=== PATIENT | female | born 1940 | race Caucasian/White ===

== ENCOUNTER 2024-07-24 08:43 | Inpatient (IN) | payer MEDICARE, MEDICAID, SELFPAY ==
[2024-07-24] VITALS (13 sets, daily range): BP systolic 112–194; BP diastolic 67–96; PULSE 57–82; RESP 16–29; TEMP 36.3–37.4; O2SAT 94–100; BMI 38.2
--- NOTE | 2024-07-24 09:10 | PD.EDWEAK ---
ED Weakness RME/HPI General Chief complaint: Weakness Stated complaint: WEAKNESS/ SHAKING Time Seen by Provider: 07/24/24 08:59 Arrival date/time: 07/24/24 08:43 RME / HPI RME / HPI Narrative: This section includes all my notes and documentations, including HPI, PE, and ED course.? Omid Torres MD HPI: 84 year old female with a history of CAD s/p PCI, hypertension, hypothyroidism, and hyperlipidemia presents to the ED BIBA from home for evaluation of right ankle swelling. The swelling began yesterday and is associated with redness and increased warmth over the affected area. She also reports chills, generalized weakness, and an intermittent cough for the past 5 days. The patient notes a decrease in her usual activity level over the past 5 days due to the weakness, and although she lives independently and is able to perform all ADLs, she has been walking less recently. She denies any recent trauma to the ankle or other significant symptoms. No other complaints. ROS: All negative except as documented in HPI. Physical Exam: General:? Alert and oriented.? Appearance of malaise noted. Mild respiratory distress noted. Eyes:? Conjunctivae and lids clear.? ENT:? No nasal congestion.? Neck:? Supple.? Heart:? RRR.? Lungs: Mild respiratory distress.? Moderately decreased air movement with Rales. Abdomen:? Soft and nontender.?? Legs:? No clubbing, cyanosis, edema.? Skin:?Distal 1/3 of the right lower leg remarkable for erythema and edema and calor and soft tissue tenderness. Neuro:? Alert and oriented X 3.??Cranial nerves II through XII normal. No peripheral motor deficits. I reviewed all diagnostic test results. My interpretation of the EKG is?sinus rhythm with nonspecific ST?T changes. My interpretation of the chest x-ray is infiltrates. My interpretation of the right ankle x-rays is no acute fracture. My review of the chest CT report is?bilateral pneumonia. My review of the right lower extremity Doppler is no DVT. Blood tests and urine tests?remarkable for ESR 78, D-dimer 2950, CRP 1.6, BNP 232, TSH 7.76, Free T4 1.25. At this point, diagnoses include?pneumonia and right lower leg cellulitis. Treatment here included?Solu-Medrol 25 mg IV, DuoNeb, oral clonidine 0.3 mg, Rocephin 1 g IV, and Zithromax 100 mg IV. Significant improvement not noted. I discussed the case with our hospitalist.? About the presentation and exam and diagnostics and treatments here.? And need of further care in the hospital.? Will accept the patient. Omid Torres MD Related Data Home Medications ?Medication ?Instructions ?Recorded ?Confirmed levothyroxine 125 mcg tablet 125 mcg PO QDAY 03/05/21 03/05/21 (Synthroid) Previous Rx's ?Medication ?Instructions ?Recorded aspirin 81 mg tablet,delayed 81 mg PO QDAY #30 tabs 03/05/21 release (Adult Aspirin Regimen) atorvastatin 40 mg tablet (Lipitor) 40 mg PO QDAY #30 tabs 03/05/21 furosemide 20 mg tablet 20 mg PO QAM #30 tabs 03/05/21 lisinopril 5 mg tablet 5 mg PO QDAY #30 tabs 03/05/21 metoprolol succinate 25 mg 25 mg PO QDAY #30 tabs 03/05/21 tablet,extended release 24 hr Allergies Allergy/AdvReac Type Severity Reaction Status Date / Time Penicillins Allergy Severe Hives Verified 07/24/24 09:21 Review of Systems Review of Systems Systems Reviewed: All systems reviewed, normal except as documented Past Medical History Past Medical History CARDIAC: Positive Cardiac Disorders, Heart Murmur, Coronary Artery Disease, Congestive Heart Failure and Hypertension GASTROINTESTINAL: Positive Obesity REPRODUCTIVE: Positive Previous Pregnancies MUSCULOSKELETAL: Positive Fractures ENT: Positive Cataracts ENDOCRINE: Positive Endocrine Disorders, Hypothyroidism and Graves' Disease Family History FAMILY HISTORY: Positive Family Cardiac Disorders Surgical History SURGICAL: Positive Coronary Stent, Angiogram, Eye Surgery, Tonsillectomy and Hysterectomy Social History SMOKING STATUS: Never smoker SUBSTANCE USE: does not use ED Exam Narrative Physical exam: As noted in HPI Course Quality Measures none Orders Category Date Time Status Patient Condition Routine Admission 07/24/24 12:[address] in Observation Status Routine Admission 07/24/24 12:32 Active Activity as Tolerated Routine Care 07/24/24 12:32 Ordered Bedside COVID-19 Antigen Test NOW Care 07/24/24 09:11 Active Bedside Influenza A&B Antigen Test NOW Care 07/24/24 09:11 Completed COVID-19 Screening Questionnaire NOW Care 07/24/24 11:[address] Screening NOW Care 07/24/24 10:[address] Screening NOW Care 07/24/24 10:50 Completed Continuous Pulse Oximetry QSHIFT Care 07/24/24 12:31 Completed Decision to Admit X1 Care 07/24/24 11:55 Active EKG (ED ONLY) *Do not use* NOW Care 07/24/24 09:11 Completed Notify provider NEEDED Care 07/24/24 12:32 Active Obtain weight NOW Care 07/24/24 12:31 Active Saline [Insert IV] NOW Care 07/24/24 09:11 Completed Straight [In and Out Catheter] X1 Care 07/24/24 09:11 Completed Vital Signs, Non-Routine Q4H Care 07/24/24 12:45 Ordered Vital Signs, Non-Routine Q4H Care 07/24/24 16:45 Ordered Vital Signs, Non-Routine Q4H Care 07/24/24 20:[address] angio chest Stat Exams 07/24/24 10:50 Completed EKG (ED Only) Stat Exams 07/24/24 09:11 Draft NM VQ scan Stat Exams 07/24/24 10:49 Stop Req US venous doppler LE BI Stat Exams 07/24/24 10:27 Taken XR ankle comp RT min 3V Stat Exams 07/24/24 09:11 Completed XR chest 1V portable Stat Exams 07/24/24 09:11 Completed BNP [B-Type Natriuretic Peptide] Stat Lab 07/24/24 09:30 Completed Blood Culture (Lab) Stat Lab 07/24/24 10:11 Received CBC AM DRAW Lab 07/25/24 05:00 Ordered CBC Stat Lab 07/24/24 09:30 Completed CMP [Comprehensive Metabolic Panel] Stat Lab 07/24/24 09:30 Completed CRP [C-Reactive Protein] Stat Lab 07/24/24 09:30 Completed D-Dimer Stat Lab 07/24/24 09:30 Completed ESR [Sed Rate (ESR)] Stat Lab 07/24/24 09:30 Completed Free T4 (Free Thyroxine) Stat Lab 07/24/24 09:30 Completed Lactate (Lactic Acid) Stat Lab 07/24/24 09:30 Completed Magnesium Stat Lab 07/24/24 09:30 Completed PT [Prothrombin Time with INR] Stat Lab 07/24/24 09:30 Completed PTT [Partial Thromboplastin Time] Stat Lab 07/24/24 09:30 Completed Procalcitonin Stat Lab 07/24/24 09:30 Completed RSV [Respiratory Syncytial Virus Ag] Stat Lab 07/24/24 09:32 Ordered TSH [Thyroid Stimulating Hormone] Stat Lab 07/24/24 09:30 Completed Troponin I Stat Lab 07/24/24 09:30 Completed UA [Urinalysis] Stat Lab 07/24/24 09:19 Completed Acetaminophen Ivpb [Ofirmev Inj] Med 07/24/24 11:36 Discontinued 1,000 mg in 100 ml IV NOW Albuterol/Ipratr Rt Suzie [Duoneb Rt Suzie] Med 07/24/24 09:12 Discontinued 3 ml INH X1 ONE Azithromycin Inj [Zithromax Inj] 500 mg Med 07/24/24 11:36 Discontinued Sodium Chloride 0.9% 250 ml [Ns] 250 ml IV X1 MethylPREDNISolone.* [SoluMEDROL Inj] Med 07/24/24 09:12 Discontinued 125 mg IVP X1 ONE cefTRIAXone/D5w 1gm IV premix [Rocephin/D5w 1gm IV Med 07/24/24 11:36 Discontinued premix] 50 ml IV X1 cloNIDine HCL [Catapres] Med 07/24/24 11:34 Discontinued 0.3 mg PO X1 ONE Code Status Routine Oth 07/24/24 12:31 Ordered Vital Signs Vital signs: Vital Signs Temperature 98.1 F 07/24/24 08:45 Pulse Rate 66 07/24/24 08:45 Respiratory Rate 20 07/24/24 08:45 Blood Pressure 168/77 H 07/24/24 08:45 Pulse Oximetry (%) 95 07/24/24 08:45 Oxygen Delivery Method Room Air 07/24/24 08:45 Pulse ox is 95% on room air which is adequate. Weakness MDM Narrative MDM Narrative:: Alana Weiss am scribing for and in the presence of Dr. Torres. Patient data External records reviewed:: [facility] previous records (I reviewed admisson from 03/03/2021 through 03/06/2021) and EMS form Clinical information provided by:: patient and EMS Social determinants that could affect healthcare access:: none Patient has the following chronic illnesses:: CAD s/p PCI, hypertension, hypothyroidism, and hyperlipidemia How is presenting disease/condition affected by chronic disease/condition?: exacerbated by Evaluation data The following diagnostics were reviewed and interpreted by me:: lab results, radiology exam(s) and EKG tracing(s) (My interpretation of the EKG is: Sinus rhythm (99 bpm) with nonspecific ST-T changes. Omid Torres MD) Lab and/or radiology exams considered but not ordered:: None Interpretation Summary: Pneumonia and right lower leg cellulitis Medications / Prescriptions Medications or Prescriptions considered but not ordered:: None Medication administrations:: Medication Administration History Aspirin (Aspirin Ec 81 Mg Tabec) 81 mg PO DAILY PEBBLES Stop: 08/24/24 08:59 Atorvastatin Calcium (Atorvastatin Calcium 10 Mg Tablet) 40 mg PO DAILY PEBBLES Stop: 08/24/24 08:59 Enoxaparin Sodium (Enoxaparin Sod Inj 40 Mg/0.4 Ml Syringe) 40 mg SC DAILY PEBBLES Stop: 08/07/24 12:44 Last Admin: 07/24/24 12:47 Dose: 40 mg Documented By: EF Ceftriaxone Sodium/Dextrose (Rocephin/D5w 1gm Iv Premix) 50 mls @ 100 mls/hr IV QDAY PEBBLES Stop: 08/01/24 08:59 Doxycycline Hyclate 100 mg/ (Sodium Chloride) 100 mls @ 100 mls/hr IV BID PEBBLES Stop: 07/31/24 20:59 Levothyroxine Sodium (Levothyroxine Sodium 125 Mcg Tablet) 125 mcg PO ACBR PEBBLES Stop: 08/24/24 05:59 Metoprolol Succinate (Metoprolol Succinate Xl 25 Mg Tabcr) 25 mg PO DAILY PEBBLES Stop: 08/23/24 12:44 Last Admin: 07/24/24 12:47 Dose: 25 mg Documented By: EF Pantoprazole Sodium (Pantoprazole 40 Mg Tablet) 40 mg PO DAILY PEBBLES Stop: 08/24/24 08:59 Discontinued Medications Albuterol/Ipratropium (Albuterol/Ipratropium (Duoneb) Rt Suzie 3 Ml Nebu) 3 ml INH X1 ONE Stop: 07/24/24 09:13 Last Admin: 07/24/24 10:22 Dose: 3 ml Documented By: BIRGIT Clonidine (Clonidine Hcl 0.1 Mg Tablet) 0.3 mg PO X1 ONE Stop: 07/24/24 11:35 Last Admin: 07/24/24 12:51 Dose: Not Given Documented By: EF Non-Admin Reason: Change of Condition Acetaminophen (Ofirmev Inj) 1,000 mg in 100 mls @ 250 mls/hr IV NOW ONE Stop: 07/24/24 11:59 Last Admin: 07/24/24 12:30 Dose: Not Given Documented By: DO Non-Admin Reason: Cancelled by Provider Azithromycin 500 mg/ Sodium (Chloride) 250 mls @ 250 mls/hr IV X1 ONE Stop: 07/24/24 12:35 Last Admin: 07/24/24 12:46 Dose: 250 mls/hr Documented By: EF Ceftriaxone Sodium/Dextrose (Rocephin/D5w 1gm Iv Premix) 50 mls @ 100 mls/hr IV X1 ONE Stop: 07/24/24 12:05 Last Infusion: 07/24/24 12:21 Dose: Infused Documented By: Admin: 07/24/24 11:51 Dose: 100 mls/hr Documented By: EF Methylprednisolone Sodium Succinate (Methylprednisolone Sod Succ 62.5 Mg/Ml 2ml Vial) 125 mg IVP X1 ONE Stop: 07/24/24 09:13 Last Admin: 07/24/24 10:39 Dose: 125 mg Documented By: DO Solu-Medrol and DuoNeb and Rocephin and Zithromax and clonidine Consultations Consultation(s) initiated? (list below): Yes Consultation #1 (Physician, Specialty, Details): I spoke with hospitalist Dr. Gonzalez. Discussed patients PMHx, HPI, ED course, exam findings, labs, and radiology results. The hospitalist agree to accept the patient for admission. Time: 11:55 Diagnosis Weakness Differential Diagnosis: acute myocardial infarction, anemia, hypoglycemia, hypothyroidism, sepsis, dehydration and other (PE, pneumonia, cellulitis) Most likely diagnosis given after review of the tests above:: Pneumonia Cellulitis of right lower leg Admission Indicated Admission indicated?: indicated Explain why admission is indicated or not indicated:: Severe pneumonia and right leg cellulitis Admission Request Was there a request for admission?: Yes Admission Attestation Admission request attestation: Discussed case with Hospitalist service regarding admission. Discussed patients ED course, exam findings, labs, and radiology results. The Hospitalist [agrees,declines] to accept the patient for admission. Disposition Plan Disposition Plan: Admit Discharge Plan Plan Patient Disposition: Other Care w/in Hosp ([facility]) Problem List Clinical Impression: Pneumonia, Cellulitis of right lower leg
--- NOTE | 2024-07-24 09:11 | EKG_ITS ---
[facility] Test Date: 2024-07-24 Pat Name: ANNA SCALES Department: Room: - Gender: Female Substitute Nurse: : [id number] Requested By: Omid Sims Order Number: [id number] Reading MD: Omid Sims Measurements Intervals [place] Rate: 59 P: 37 NH: 150 QRS: -48 QRSD: 133 T: 0 QT: 454 QTc: 453 Interpretive Statements SINUS BRADYCARDIA WITH MARKED SINUS ARRHYTHMIA INTRAVENTRICULAR CONDUCTION DELAY [130+ ms QRS DURATION] ANTEROLATERAL MYOCARDIAL INFARCTION , OF INDETERMINATE AGE [40+ ms Q WAVE IN I/aVL/V3-V6] Compared to ECG 03/03/2021 06:49:52 Sinus rhythm no longer present Left-axis deviation no longer present Myocardial infarct finding still present /store/S0/[id number]/ecg/[id number].pdf
--- NOTE | 2024-07-24 09:11 | XR_ITS ---
EXAMINATION: Ankle, right 3 views . Technique: Ankle AP, oblique, lateral 3 views Date and time of exam: July 28, 2024 0947 hours INDICATIONS: Ankle edema and pain today FINDINGS: Prominent osteopenia. No fracture or dislocation Mild narrowing tibiotalar joint IMPRESSION: No fracture or dislocation
--- NOTE | 2024-07-24 09:11 | XR_ITS ---
Examination: AP chest single view TECHNIQUE: AP portable semiupright chest single view Exam date and time: July 24, 2024 0959 hours Comparison March 03, 2021 INDICATIONS: Coughing chills today. FINDINGS: Pneumonia left base obscuring detail left hemidiaphragm Mild enlargement cardiac contour Prominent osteopenia IMPRESSION: Significant left base pneumonia
--- NOTE | 2024-07-24 09:29 | PC.NURSE ---
patient brought in by ems for shakiness and right lower leg pain. patient stated shes not having any difficulty breathing or chest pain. Patient was having concerns of her right lower leg pain that started today.
[2024-07-24 09:44] LABS: Lactate (Lactic Acid) 1.6 mMol/L (0.4-2.0)
[2024-07-24 09:50] LABS: Basophils # (Auto) 0.1 Thou/mm3 (0.0-0.2); Basophils % (Auto) 1 % (0-2.5); Eosinophils # (Auto) 0.1 Thou/mm3 (0.0-0.5); Eosinophils % (Auto) 1 % (0-10); Hemoglobin 15.5 g/dL (12.0-16.0); Immature Granulocytes % (Auto) 1 % (0-0); Immature Granulocytes Auto 0.05 Thou/mm3 (0.00-0.00); Lymphocytes # (Auto) 1.3 Thou/mm3 (1.0-4.8); Lymphocytes % (Auto) 12 % (10-50); Mean Corpuscular HGB Conc 32.3 g/dl (31.0-37.0); Mean Corpuscular Hemoglobin 28.9 pg (25.0-35.0); Mean Corpuscular Volume 90 fL (80-100); Monocytes # (Auto) 0.4 Thou/mm3 (0.0-0.8); Monocytes % (Auto) 4 % (0-12); Neutrophils # (Auto) 8.9 Thou/mm3 (1.8-7.7); Neutrophils % (Auto) 83 % (37-80); Nucleated Red Blood Cell % 0 /100 WBC (0); Platelet Count 275 Thou/mm3 (140-440); RDW Standard Deviation 49.7 fL (36.4-46.3); Red Blood Count 5.36 Miln/mm3 (4.00-5.20); White Blood Count 10.8 Thou/mm3 (3.6-11.0)
[2024-07-24 09:51] LABS: Collection Type, Urine Clean Catch; Squamous Epithelial Cell,Urine 0 /hpf (0-5); WBC,Urine 0 /hpf (0-5)
[2024-07-24 10:00] LABS: Bilirubin,Urine Negative (Negative); Blood,Urine Negative (Negative); Clarity,Urine Clear (Clear/Hazy); Color,Urine Colorless (Lt Yel-Yel); Glucose, Urine Negative (Negative); Ketones,Urine Negative (Negative); Leukocyte Esterase,Urine Negative (Negative); Nitrite,Urine Negative (Negative); PH,Urine 7.5 (5.0-7.0); Protein,Urine Negative (Neg - Trace); RBC,Urine 1 /hpf (0-3); Specific Gravity,Urine 1.005 (1.001-1.035); Urobilinogen,Urine Negative mg/dL (0.0-1.0)
[2024-07-24 10:03] LABS: Sed Rate (ESR) 78 mm/hr (0-30)
[2024-07-24 10:04] LABS: INR 1.1 (0.9-1.3); Partial Thromboplastin Time 27.6 Seconds (22.0-36.0); Prothrombin Time 11.7 Seconds (9.0-12.2)
[2024-07-24 10:14] LABS: Alanine Aminotransferase 23 U/L (10-49); Albumin, Serum 4.7 gm/dL (3.4-4.8); Albumin/Globulin Ratio 1.7 (1.2-2.2); Alkaline Phosphatase 88 U/L (46-116); Anion Gap 7 (7-16); Aspartate Amino Transferase 21 U/L (0-34); BUN/Creatinine Ratio 19 Ratio (12-20); Bilirubin,Total 0.7 mg/dL (0.3-1.2); Blood Urea Nitrogen 19 mg/dL (9-23); C-Reactive Protein 1.6 mg/dL (0.0-0.9); Calcium 9.8 mg/dL (8.3-10.6); Calcium (Corrected) 9.8 mg/dL (8.5-10.1); Carbon Dioxide 30.1 mMol/L (20.0-31.0); Chloride 101 mMol/L (98-107); D-Dimer 2950 ng/mL (<600); Estimated Creatinine Clearance 48.4 mL/min (>60); Globulin 2.8 gm/dL (2.3-3.5); Glucose 128 mg/dL (74-106); Osmolality,Calculated 279 (275-295); Procalcitonin 0.04 ng/ml (0.0-0.49); Sodium 138 mMol/L (136-145); Thyroid Stimulating Hormone 7.76 uIU/mL (0.55-4.78); Total Protein 7.5 gm/dL (5.7-8.2); Troponin I 0.021 ng/mL (0.0-0.045); eGFR 55 See Note
[2024-07-24] MEDS: ALBUTEROL/IPRATROPIUM (Duoneb) RT SOL 3 ML NEBU INH (10:22)
[2024-07-24 10:27] LABS: B-Type Natriuretic Peptide 232 pg/mL (0-100)
--- NOTE | 2024-07-24 10:27 | XR_ITS ---
Examination: Venous duplex lower extremity sonogram, bilateral. Date and time of exam: July 24, 2024 1353 hours INDICATIONS: Right leg redness swelling and pain beginning 2 days ago Technique: Multiple sonographic images of the deep venous system have been obtained. B-mode/2-D grayscale imaging of vascular structures and Doppler spectral analysis (waveforms) and color performed Both legs are examined. Findings: Deep venous systems do not demonstrate abnormal echogenicity. All visualized deep veins exhibit compressibility. All visualized deep veins exhibit augmentation. Impression: Negative for deep vein thrombosis
[2024-07-24] MEDS: MethylPREDNISolone SOD SUCC 62.5 MG/ML 2ML VIAL 125 MG IVP (10:39)
--- NOTE | 2024-07-24 10:50 | XR_ITS ---
Examination: CTA chest with intravenous contrast 2-D reconstructions 3-D reconstructions, vascular Date and time of exam: July 24, 2020 4:11 AM INDICATIONS: Elevated d-dimer shortness of breath coughing today CTDI: vol (mGy) 31 DLP: (mGycm) 657 Technique: Multiple axial sections of the thorax have been obtained. 3 mm slice thickness, from below the hemidiaphragms to above the apices of the lungs. Mediastinal and lung density settings have been obtained. 2-D sagittal and coronal reconstructions. 3-D angiographic renderings, 3-D volume renderings, 3D post processing, vascular maximum intensity projections obtained. Contrast administered is 100 cc Isovue-370 intravenous. Low dose protocols were performed. One or more of the following dose reduction techniques were used; automated exposure control, adjustment of the mA and/or KV according to patient size, use of iterative reconstruction technique. Findings: No thoracic aortic aneurysm dilatation Main pulmonary artery segment 31 mm No pulmonary artery emboli No paratracheal tracheobronchial or bronchopulmonary adenopathy Proximal ascending thoracic aortic cage Mild enlargement cardiac contour Mild vascular congestion Bibasilar pneumonia with mild to moderate bilateral pleural effusions Trace pericardial thickening Fatty liver Gallbladder sludge versus small stones Spleen is not enlarged No pancreatic mass Moderate renal parenchymal scar formation moderate osteopenia IMPRESSION: Negative for pulmonary artery emboli Bibasilar pneumonia Mild to moderate bilateral pleural effusions Recommend hepatobiliary sonography follow-up
--- NOTE | 2024-07-24 10:53 | PC.NURSE ---
patient taken to ct
[2024-07-24] MEDS: cefTRIAXone/D5w 1gm IV premix 50 ML IV (11:51)
--- NOTE | 2024-07-24 12:25 | PC.NURSE ---
DR QURESHI AT BEDSIDE
--- NOTE | 2024-07-24 12:43 | PD.HHHP ---
Documentation for date of: 07/24/24 HPI - Hospitalist History of Present Illness History of present illness: 84-year-old female with hypertension, hyperlipidemia and hypothyroidism subsequent CAD status post stent placement and heart failure with preserved ejection fraction who presented to the ER with chief complaint of right leg pain and shortness of breath. Patient states that she has been having the right leg pain with associated erythema that has been going on for the past 2 days however denies any fevers or chills. In addition, patient also stated that she has been having shortness of breath that has been going on for the past 4 days with associated orthopnea however denies any paroxysmal nocturnal dyspnea or dyspnea on exertion. In the ER, patient underwent CTA with findings of bilateral pleural effusion and pneumonia however no PE. Patient does not have any fevers and no evidence of leukocytosis. Plan to observe the patient for community-acquired pneumonia and right leg cellulitis. Past medical history: Hypertension, hyperlipidemia, hypothyroidism, CAD status post stent, heart failure with preserved EF Allergies: Allergic to penicillin: Hives Medication: Aspirin 81, Lipitor 40 mg daily, metoprolol 25 mg daily, levothyroxine 125 mcg daily Social history: Denies any tobacco use, alcohol or illicit drug use. Lives in an apartment alone. Surgical history: Denies any previous surgical history Review of Systems Review of Systems Narrative Review of Systems: General: Denies fevers or chills. Heart: Denies chest pain or palpitation . Abdomen: Denies diarrhea, constipation, bright red blood per rectum or melena. Neurology: Denies any changes in vision, weakness or difficulty speaking. The rest of review of system is otherwise negative except what is mentioned above Meds Home Medications and Allergies Home Medications ?Medication ?Instructions ?Recorded ?Confirmed ?Type levothyroxine 125 mcg tablet 125 mcg PO QDAY 03/05/21 03/05/21 History (Synthroid) Allergies Allergy/AdvReac Type Severity Reaction Status Date / Time Penicillins Allergy Severe Hives Verified 07/24/24 09:21 Exam Vital Signs Temp Pulse Resp BP Pulse Ox O2 Del Method 97.9 F 82 18 175/92 H 94 L Room Air 07/24/24 12:20 07/24/24 12:20 07/24/24 12:20 07/24/24 12:20 07/24/24 12:20 07/24/24 12:20 Narrative Physical Exam: General: Alert and oriented to name, date of and place HEENT: Normocephalic, atraumatic Cardiac: Regular rate and rhythm, no murmurs Lungs: Diminished breath sounds in the bibasilar area. No wheezing or crackles. Abdomen: Nondistended, nontender positive bowel sounds. No guarding or rebound tenderness. Neurology: Cranial nerves II to XII intact and patient able to move all 4 extremities. Skin: Right lower extremity with erythema and warmth. Appears to be symmetrical with the left lower extremity. Results - Hospitalist Labs Diagrams: 07/24/24 09:30 07/24/24 09:30 Labs: Short CBC 07/24/24 Range/Units 09:30 WBC 10.8 (3.6-11.0) Thou/mm3 Hgb 15.5 (12.0-16.0) g/dL Hct 48.0 H (36.0-46.0) % Plt Count 275 (140-440) Thou/mm3 BMP 07/24/24 09:30 Sodium 138 Potassium 4.0 Chloride 101 Carbon Dioxide 30.1 BUN 19 Creatinine 1.0 Glucose 128 H Calcium 9.8 Cardiac Enzymes 07/24/24 Range/Units 09:30 Troponin I 0.021 (0.0-0.045) ng/mL Liver Function 07/24/24 Range/Units 09:30 Total Bilirubin 0.7 (0.3-1.2) mg/dL AST 21 (0-34) U/L ALT 23 (10-49) U/L Alkaline Phosphatase 88 (46-116) U/L Albumin 4.7 (3.4-4.8) gm/dL Urine 07/24/24 Range/Units 09:19 Urine Color Colorless A (Lt Yel-Yel) Urine Clarity Clear (Clear/Hazy) Urine pH 7.5 H (5.0-7.0) Ur Specific [place] 1.005 (1.001-1.035) Urine Protein Negative (Neg - Trace) Urine Glucose (UA) Negative (Negative) Assessment & Plan -Hospitalist Patient Synopsis 1. Community-acquired pneumonia ? CTA negative for PE and plan to treat the patient with Rocephin and doxycycline 2. Right lower extremity cellulitis ? Continue Rocephin and doxycycline 3. Hyperlipidemia ? Continue atorvastatin 40 mg daily 4. Hypertension ? Continue with metoprolol 25 mg daily 5. Heart failure with preserved EF ? Patient does not appear to be fluid overloaded ? Will continue holding off on Lasix ? Continue to monitor closely 6. Hypothyroidism ? Patient has a history of Graves' disease status post ablation and currently transition to hypothyroidism ? Continue levothyroxine Healthcare Maintenance: DVT prophylaxis: Lovenox 40 mg daily GI prophylaxis: Protonix 40 mg daily Diet: Cardiac diet Lines: PIV CODE STATUS: Full code Reason for hospitalization: Community-acquired pneumonia on IV antibiotic therapy, right leg cellulitis on IV antibiotic therapy. Anticipate discharge in the next 24-48 hours. Quality Measures Quality Measures none Advance care planning discussed with:: patient
[2024-07-24] MEDS: AZITHROMYCIN INJ 500 MG in SODIUM CHLORIDE 0.9% 250 ML 250 ML 250 MG IV (12:46)
[2024-07-24] MEDS: ENOXAPARIN SOD INJ 40 MG/0.4 ML SYRINGE SC (12:47)
[2024-07-24] MEDS: METOPROLOL SUCCINATE XL 25 MG TABCR PO (12:47)
[2024-07-24 13:18] LABS: Free T4 (Free Thyroxine) 1.25 ng/dL (0.89-1.76)
--- NOTE | 2024-07-24 13:59 | PC.CC ---
Patient is a 84 year-old female who presents to the hospital for weakness/shaking. Aniya UNDERWOOD made [id number] contact with patient. ASW introduced self, role, and reason for visit. Patient appeared alert and oriented to self, location, and situation. Patient was pleasant and engaged in initial assessment. Patient confirmed information on demographics and reports she lives alone, but her son, Eleazar Anguiano is part of her support system and lives down the street from her. Patient's son comes over every couple of days to check up on her and calls her daily. Prior to being admitted patient was able to complete her own ADLs and ambulates on her own. Patient stated she has a fancy walker but does not use it as she does not have the need to. Patient has been using oxygen since coming to the hospital but does not use it at home. Patient is seen at [facility] in [place] and uses [facility] pharmacy in [place]. Upon discharge patient plans to return home. director of radio services to follow-up with any discharge needs.
[2024-07-24] MEDS: DOXYCYCLINE INJ 100 MG in SODIUM CHLORIDE 0.9% (P) 100 ML IV (20:18)
[2024-07-25] VITALS (9 sets, daily range): BP systolic 120–146; BP diastolic 58–76; PULSE 53–79; RESP 18–21; TEMP 36.2–36.4; O2SAT 92–96
[2024-07-25] MEDS: LEVOTHYROXINE SODIUM 125 MCG TABLET PO (05:56)
[2024-07-25 06:38] LABS: Basophils # (Auto) 0.1 Thou/mm3 (0.0-0.2); Basophils % (Auto) 0 % (0-2.5); Eosinophils % (Auto) 0 % (0-10); Hematocrit 45.3 % (36.0-46.0); Hemoglobin 14.5 g/dL (12.0-16.0); Immature Granulocytes % (Auto) 0 % (0-0); Immature Granulocytes Auto 0.07 Thou/mm3 (0.00-0.00); Lymphocytes # (Auto) 1.1 Thou/mm3 (1.0-4.8); Lymphocytes % (Auto) 6 % (10-50); Mean Corpuscular Hemoglobin 29.2 pg (25.0-35.0); Mean Corpuscular Volume 91 fL (80-100); Monocytes # (Auto) 0.7 Thou/mm3 (0.0-0.8); Monocytes % (Auto) 3 % (0-12); Neutrophils % (Auto) 90 % (37-80); Nucleated Red Blood Cell % 0 /100 WBC (0); Platelet Count 294 Thou/mm3 (140-440); RDW Standard Deviation 49.7 fL (36.4-46.3); Red Blood Count 4.97 Miln/mm3 (4.00-5.20); White Blood Count 18.9 Thou/mm3 (3.6-11.0)
[2024-07-25 07:06] LABS: Albumin, Serum 4.5 gm/dL (3.4-4.8); Anion Gap 7 (7-16); BUN/Creatinine Ratio 26 Ratio (12-20); Blood Urea Nitrogen 23 mg/dL (9-23); Calcium 9.8 mg/dL (8.3-10.6); Calcium (Corrected) 9.8 mg/dL (8.5-10.1); Carbon Dioxide 28.8 mMol/L (20.0-31.0); Chloride 102 mMol/L (98-107); Creatinine (Component) 0.9 mg/dL (0.6-1.3); Estimated Creatinine Clearance 56.7 mL/min (>60); Glucose 139 mg/dL (74-106); Osmolality,Calculated 281 (275-295); Phosphorous 3.6 mg/dL (2.4-5.1); Potassium 4.1 mMol/L (3.4-5.1); Sodium 138 mMol/L (136-145); eGFR > 60 See Note
[2024-07-25] MEDS: cefTRIAXone/D5w 1gm IV premix 50 ML IV (09:16)
[2024-07-25] MEDS: PANTOPRAZOLE 40 MG TABLET PO (09:26)
[2024-07-25] MEDS: ATORVASTATIN CALCIUM 10 MG TABLET 40 MG PO (09:27)
[2024-07-25] MEDS: ASPIRIN EC 81 MG TABEC PO (09:27)
[2024-07-25] MEDS: METOPROLOL SUCCINATE XL 25 MG TABCR PO (09:27)
[2024-07-25] MEDS: ENOXAPARIN SOD INJ 40 MG/0.4 ML SYRINGE SC (09:28)
[2024-07-25] MEDS: DOXYCYCLINE INJ 100 MG in SODIUM CHLORIDE 0.9% (P) 100 ML IV ×2 (09:58→20:15)
--- NOTE | 2024-07-25 13:22 | PC.PT ---
PT arthur completed. Patient is requesting SNF for short term rehab services. She preferred [facility] as she was previously there.
--- NOTE | 2024-07-25 13:41 | PD.RESPROC ---
Procedures Procedure Date / Time 07/25/24 2823
--- NOTE | 2024-07-25 13:48 | ESPR_ITS ---
<Statement entered by Lise Holley MD - 08/11/24 09:26> I reviewed above note and agree with findings and plans. I have also personally examined the patient with medicine team and went over assessment and plan with medical team including pr intern and resident physician. Documentation for date of: 07/25/24 Subjective Subjective Interval history: Patient seen today at the bedside fine awake, alert, oriented x 3. No overnight events reported. States no active complaints at this time. Patient reports leg swelling and erythema has improved significantly. Labs significant for elevated WBCs likely secondary to methylprednisolone received the previous day rest of labs unremarkable. Continue current management with ceftriaxone and doxycycline. Anticipate discharge in the next 24 to 48 hours. Exam Vital Signs Temp Pulse Resp BP Pulse Ox O2 Del Method O2 Flow Rate 97.5 F 53 L 18 129/66 96 Nasal Cannula 1 07/25/24 12:00 07/25/24 12:00 07/25/24 12:00 07/25/24 12:00 07/25/24 12:00 07/25/24 12:00 07/25/24 12:00 Narrative Exam Physical Exam GENERAL: NAD, NC/AT, responsive/cooperative. A&Ox3 HEENT: Moist mucosa. Eyes open, symmetrical, & clear CARDIO: No chest pain on palpation. Heart RRR, no obvious murmurs PULM: No noted coughing/dyspnea. Lungs breath sounds diminished bilaterally GI: Abdomen soft, nondistended, no pain on palpation. BSx4 URO/CUSTOMER PROFESSIONAL:: No further abnormalities noted. SKIN/MSK/EXT: B/L lower extremity edema +1, no pain on palpation. Pedal pulses present B/L NEURO: AAOX3, no focal neuro deficits Objective Labs 07/25/24 06:01 07/25/24 06:01 Labs: Laboratory Results - last 24 hr 07/25/24 06:01 WBC 18.9 H D RBC 4.97 Hgb 14.5 Hct 45.3 MCV 91 MCH 29.2 MCHC 32.0 RDW Std Deviation 49.7 H Plt Count 294 Neut % (Auto) 90 H Lymph % (Auto) 6 L Moody % (Auto) 3 Eos % (Auto) 0 Baso % (Auto) 0 Neut # (Auto) 17.0 H Lymph # (Auto) 1.1 Moody # (Auto) 0.7 Eos # (Auto) 0.0 Baso # (Auto) 0.1 Immature Gran # (Auto) 0.07 H Absolute Nucleated RBC 0.00 Immature Gran % 0 Nucleated RBC % 0 Sodium 138 Potassium 4.1 Chloride 102 Carbon Dioxide 28.8 Anion Gap 7 BUN 23 Creatinine 0.9 Estim Creat Clear Calc 56.7 L eGFR > 60 BUN/Creatinine Ratio 26 H Glucose 139 H Calculated Osmolality 281 Calcium 9.8 Corrected Calcium 9.8 Phosphorus 3.6 Albumin 4.5 Quality Measures Quality Measures none Advance care planning discussed with:: patient Assessment & Plan Assessment Current Active Medications: Generic Name Dose Route Start Last Admin Trade Name Freq PRN Reason Stop Dose Admin Aspirin 81 mg 07/25/24 09:00 07/25/24 09:27 Aspirin Ec 81 Mg Tabec PO 08/24/24 08:59 81 mg DAILY PEBBLES Administration Atorvastatin Calcium 40 mg 07/25/24 09:00 07/25/24 09:27 Atorvastatin Calcium 10 Mg Tablet PO 08/24/24 08:59 40 mg DAILY PEBBLES Administration Enoxaparin Sodium 40 mg 07/24/24 12:45 07/25/24 09:28 Enoxaparin Sod Inj 40 Mg/0.4 Ml Syringe SC 08/07/24 12:44 40 mg DAILY PEBBLES Administration Ceftriaxone Sodium/Dextrose 50 mls @ 100 mls/hr 07/25/24 09:00 07/25/24 09:16 Rocephin/D5w 1gm Iv Premix IV 08/01/24 08:59 100 mls/hr QDAY PEBBLES Administration Doxycycline Hyclate 100 mg/ 100 mls @ 100 mls/hr 07/24/24 21:00 07/25/24 09:58 Sodium Chloride IV 07/31/24 20:59 100 mls/hr BID PEBBLES Administration Levothyroxine Sodium 125 mcg 07/25/24 06:00 07/25/24 05:56 Levothyroxine Sodium 125 Mcg Tablet PO 08/24/24 05:59 125 mcg ACBR PEBBLES Administration Metoprolol Succinate 25 mg 07/24/24 12:45 07/25/24 09:27 Metoprolol Succinate Xl 25 Mg Tabcr PO 08/23/24 12:44 25 mg DAILY PEBBLES Administration Pantoprazole Sodium 40 mg 07/25/24 09:00 07/25/24 09:26 Pantoprazole 40 Mg Tablet PO 08/24/24 08:59 40 mg DAILY PEBBLES Administration Plan 84-year-old female with hypertension, hyperlipidemia and hypothyroidism subsequent CAD status post stent placement and heart failure with preserved ejection fraction who presented to the ER with chief complaint of right leg pain and shortness of breath. Admitted as an outpatient for community-acquired pneumonia and right leg cellulitis. #Community-acquired pneumonia Chest x-ray showed left basilar pneumonia CTA of the chest showed mild bilateral pleural effusions and bibasilar pneumonia On physical exam there is decreased breath sounds bilaterally -On Rocephin -On doxycycline #Right lower extremity cellulitis Patient came with lower extremity swelling and erythema Venous ultrasound of the lower extremity was negative for DVT CTA was negative for pulmonary embolism -On antibiotics as above #Heart failure with preserved ejection fraction CTA shows bilateral pleural effusions On physical exam patient has bilateral lower extremity edema -Started Lasix 40 mg p.o. daily #Hyperlipidemia #Coronary artery disease status post stents #Hypertension -On atorvastatin 40 mg -On aspirin 81 mg -Metoprolol succinate 25 mg daily #Hypothyroidism Patient has a history of Graves' disease status post ablation and currently transition to hypothyroidism -Continue levothyroxine Case discussed with my senior Dr. Roblero PGY-[address] Leydi Munoz MD PGY-1 Disposition: Observation, Fluids: None Feeding: Cardiac diet Thrombo prophylaxis: Lovenox Gastric Ulcer prophylaxis: Pantoprazole CODE STATUS: Full code Senior resident attestation: Patient evaluated and examined at the bedside, plan of care discussed with rest of the team including my attending physician, except as noted. 84-year-old female admitted for pneumonia and right lower extremity cellulitis. The patient has a history of HFpEF, CAD s/p PCI, hypothyroidism, hyperlipidemia and hypertension. #Pneumonia #Cellulitis Continue IV ceftriaxone and p.o. doxycycline. #Coronary artery disease #Hyperlipidemia #Hypertension Continue home medications PT recommended SNF, patient seems not too excited about SNF wants to go back home, agrees with home PT. Will touch base with the patient again as she lives alone at home, would likely benefit from rehab. Annika PGY2
--- NOTE | 2024-07-25 16:24 | PC.SS ---
SS sent SNF referral through [employer] SS completed PASRR SS met with pt at bedside; pt wanted to go home and discussion held regarding SNF placement; pt open to considering it given she lives alone; pt has asked [facility] SS spoke with PT who recommended SNF
[2024-07-25] MEDS: Furosemide 40 MG TABLET PO (16:51)
[2024-07-26] VITALS (11 sets, daily range): BP systolic 115–174; BP diastolic 58–82; PULSE 64–88; RESP 17–21; TEMP 36.1–36.4; O2SAT 93–95
[2024-07-26] MEDS: LEVOTHYROXINE SODIUM 125 MCG TABLET PO (05:19)
[2024-07-26] MEDS: ASPIRIN EC 81 MG TABEC PO (08:10)
[2024-07-26] MEDS: ATORVASTATIN CALCIUM 10 MG TABLET 40 MG PO (08:10)
[2024-07-26] MEDS: Furosemide 40 MG TABLET PO (08:10)
[2024-07-26] MEDS: METOPROLOL SUCCINATE XL 25 MG TABCR PO (08:10)
[2024-07-26] MEDS: cefTRIAXone/D5w 1gm IV premix 50 ML IV (08:11)
[2024-07-26] MEDS: ENOXAPARIN SOD INJ 40 MG/0.4 ML SYRINGE SC (08:11)
[2024-07-26] MEDS: PANTOPRAZOLE 40 MG TABLET PO (08:11)
[2024-07-26 08:12] LABS: Basophils # (Auto) 0.1 Thou/mm3 (0.0-0.2); Basophils % (Auto) 1 % (0-2.5); Eosinophils # (Auto) 0.3 Thou/mm3 (0.0-0.5); Eosinophils % (Auto) 2 % (0-10); Hematocrit 47.6 % (36.0-46.0); Hemoglobin 15.4 g/dL (12.0-16.0); Immature Granulocytes % (Auto) 1 % (0-0); Immature Granulocytes Auto 0.08 Thou/mm3 (0.00-0.00); Lymphocytes # (Auto) 1.6 Thou/mm3 (1.0-4.8); Lymphocytes % (Auto) 9 % (10-50); Mean Corpuscular HGB Conc 32.4 g/dl (31.0-37.0); Mean Corpuscular Hemoglobin 29.2 pg (25.0-35.0); Mean Corpuscular Volume 90 fL (80-100); Monocytes % (Auto) 6 % (0-12); Neutrophils % (Auto) 82 % (37-80); Nucleated Red Blood Cell % 0 /100 WBC (0); Platelet Count 252 Thou/mm3 (140-440); RDW Standard Deviation 50.4 fL (36.4-46.3); Red Blood Count 5.28 Miln/mm3 (4.00-5.20)
[2024-07-26 08:16] LABS: Anion Gap 7 (7-16); BUN/Creatinine Ratio 24 Ratio (12-20); Blood Urea Nitrogen 24 mg/dL (9-23); Calcium 9.7 mg/dL (8.3-10.6); Carbon Dioxide 30.7 mMol/L (20.0-31.0); Chloride 100 mMol/L (98-107); Glucose 122 mg/dL (74-106); Osmolality,Calculated 280 (275-295); Potassium 4.2 mMol/L (3.4-5.1); Sodium 138 mMol/L (136-145); eGFR 55 See Note
--- NOTE | 2024-07-26 09:02 | PC.SS ---
SS spoke to Izzy at who stated they can accept pt tomorrow 07/27 when her 3MN are up.
[2024-07-26] MEDS: DOXYCYCLINE INJ 100 MG in SODIUM CHLORIDE 0.9% (P) 100 ML IV (09:09)
--- NOTE | 2024-07-26 13:28 | ESPR_ITS ---
<Statement entered by Lise Holley MD - 08/11/24 09:27> I reviewed above note and agree with findings and plans. I have also personally examined the patient with medicine team and went over assessment and plan with medical team including international student counselor and resident physician. Documentation for date of: 07/26/24 Subjective Subjective Interval history: Patient's family bedside today. No acute overnight events. 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 Is wondering about transportation, and how she is going to get there. She had a bowel movement today. Says worsening shortness of breath and does not need oxygen at this time. Has had improvement in her coughing episodes. No other complaints at this time. Exam Vital Signs Temp Pulse Resp BP Pulse Ox O2 Del Method O2 Flow Rate 97.6 F 88 17 174/82 H 95 Room Air 1 07/26/24 11:57 07/26/24 11:57 07/26/24 11:57 07/26/24 11:57 07/26/24 11:57 07/26/24 11:57 07/25/24 16:00 Narrative Exam General: AAOx3, NAD, pleasant woman HEENT: Moist mucous membranes, conjunctiva clear, EOMI, PERRLA, Cardiovascular: S1, S2, radial pulses +2 bilat, RRR Pulmonary: CTAB bilat no cough, no wheezing GI: No tenderness to light or deep palpitation, no guarding, rigidity, rebound tenderness or distension Extremities: No presence of trace or pitting edema in lower extremities bilaterally, dorsalis pedis pulses +2 bilaterally Neuro: AAOx3, no focal motor or sensory deficits in the UE or LE bilat Psych: Good judgement, thought and behavior. Cooperative Objective Labs 07/27/24 05:39 07/27/24 05:39 Labs: Laboratory Results - last 24 hr 07/26/24 07:38 WBC 17.0 H RBC 5.28 H Hgb 15.4 Hct 47.6 H MCV 90 MCH 29.2 MCHC 32.4 RDW Std Deviation 50.4 H Plt Count 252 D Neut % (Auto) 82 H Lymph % (Auto) 9 L [place] % (Auto) 6 Eos % (Auto) 2 Baso % (Auto) 1 Neut # (Auto) 14.0 H Lymph # (Auto) 1.6 [place] # (Auto) 1.0 H Eos # (Auto) 0.3 Baso # (Auto) 0.1 Immature Gran # (Auto) 0.08 H Absolute Nucleated RBC 0.00 Immature Gran % 1 H Nucleated RBC % 0 Sodium 138 Potassium 4.2 Chloride 100 Carbon Dioxide 30.7 Anion Gap 7 BUN 24 H Creatinine 1.0 Estim Creat Clear Calc 51.0 L eGFR 55 L BUN/Creatinine Ratio 24 H Glucose 122 H Calculated Osmolality 280 Calcium 9.7 Quality Measures Quality Measures none Advance care planning discussed with:: patient Assessment & Plan Assessment Current Active Medications: Generic Name Dose Route Start Last Admin Trade Name Freq PRN Reason Stop Dose Admin Aspirin 81 mg 07/25/24 09:00 07/26/24 08:10 Aspirin Ec 81 Mg Tabec PO 08/24/24 08:59 81 mg DAILY PEBBLES Administration Atorvastatin Calcium 40 mg 07/25/24 09:00 07/26/24 08:10 Atorvastatin Calcium 10 Mg Tablet PO 08/24/24 08:59 40 mg DAILY PEBBLES Administration Doxycycline Hyclate 100 mg 07/26/24 21:00 Doxycycline 100 Mg Tablet PO 08/02/24 20:59 BID PEBBLES Enoxaparin Sodium 40 mg 07/24/24 12:45 07/26/24 08:11 Enoxaparin Sod Inj 40 Mg/0.4 Ml Syringe SC 08/07/24 12:44 40 mg DAILY PEBBLES Administration Furosemide 40 mg 07/25/24 15:00 07/26/24 08:10 Furosemide 40 Mg Tablet PO 08/24/24 14:59 40 mg QDAY PEBBLES Administration Ceftriaxone Sodium/Dextrose 50 mls @ 100 mls/hr 07/25/24 09:00 07/26/24 08:11 Rocephin/D5w 1gm Iv Premix IV 08/01/24 08:59 100 mls/hr QDAY PEBBLES Administration Levothyroxine Sodium 125 mcg 07/25/24 06:00 07/26/24 05:19 Levothyroxine Sodium 125 Mcg Tablet PO 08/24/24 05:59 125 mcg ACBR PEBBLES Administration Lisinopril 10 mg 07/26/24 13:15 Lisinopril 2.5 Mg Tablet PO 08/25/24 13:14 QDAY PEBBLES Metoprolol Succinate 25 mg 07/24/24 12:45 07/26/24 08:10 Metoprolol Succinate Xl 25 Mg Tabcr PO 08/23/24 12:44 25 mg DAILY PEBBLES Administration Pantoprazole Sodium 40 mg 07/25/24 09:00 07/26/24 08:11 Pantoprazole 40 Mg Tablet PO 08/24/24 08:59 40 mg DAILY PEBBLES Administration Plan 84-year-old female with hypertension, hyperlipidemia and hypothyroidism subsequent CAD status post stent placement and heart failure with preserved ejection fraction who presented to the ER with chief complaint of right leg pain and shortness of breath. Admitted as an outpatient for community-acquired pneumonia and right leg cellulitis. Patient is improving and is pending authorization from insurance to go to SNF at this time. #Community-acquired pneumonia, improving Chest x-ray showed left basilar pneumonia CTA of the chest showed mild bilateral pleural effusions and bibasilar pneumonia Patient is not requiring oxygen at this time, and has had improvement in her coughing spells Plan: ?Continue with Rocephin, switched to Doxycycline by mouth, day 3 of antibiotics #Right lower extremity cellulitis, improving Patient came with lower extremity swelling and erythema Venous ultrasound of the lower extremity was negative for DVT CTA was negative for pulmonary embolism Plan: ? On antibiotics as above #Heart failure with preserved ejection fraction CTA shows bilateral pleural effusions On physical exam patient has bilateral lower extremity edema Patient follows Dr. Lopez Plan: -Continue with Lasix 40 mg p.o. daily #Hyperlipidemia #Coronary artery disease status post stents #Hypertension Plan: -On atorvastatin 40 mg -On aspirin 81 mg -Metoprolol succinate 25 mg daily #Hypothyroidism Patient has a history of Graves' disease status post ablation and currently transition to hypothyroidism Plan: -Continue levothyroxine 125 mcg #Health Maintenance Disposition: Observation DVT prophylaxis: Lovenox GI prophylaxis: Protonix Diet: Cardiac CODE STATUS: Full Patient seen and care discussed with my senior resident, Dr. Roblero, and my attending physician, Dr. Leydi Clark, PGY-1 --------- Senior resident attestation: Patient evaluated and examined at the bedside, plan of care discussed with rest of the team including my attending physician, except as noted. 84-year-old female admitted for pneumonia and right lower extremity cellulitis. The patient has a history of HFpEF, CAD s/p PCI, hypothyroidism, hyperlipidemia and hypertension. #Pneumonia #Cellulitis Continue IV ceftriaxone and p.o. doxycycline. #Coronary artery disease #Hyperlipidemia #Hypertension Continue home medications PT recommended SNF, patient seems not too excited about SNF wants to go back home, agrees with home PT. Will touch base with the patient again as she lives alone at home, would likely benefit from rehab. Annika PGY2
[2024-07-26] MEDS: Lisinopril 2.5 MG TABLET 10 MG PO (13:56)
[2024-07-26] MEDS: DOXYCYCLINE 100 MG TABLET PO (20:16)
[2024-07-27] VITALS (10 sets, daily range): BP systolic 106–148; BP diastolic 54–73; PULSE 60–74; RESP 16–21; TEMP 35.8–36.6; O2SAT 92–95
--- NOTE | 2024-07-27 00:14 | PC.NURSE ---
Dr young notified of pt's low diastolic 132/58, no new orders at this time.
[2024-07-27] MEDS: LEVOTHYROXINE SODIUM 125 MCG TABLET PO (05:31)
[2024-07-27 06:06] LABS: Basophils # (Auto) 0.1 Thou/mm3 (0.0-0.2); Basophils % (Auto) 1 % (0-2.5); Eosinophils # (Auto) 0.5 Thou/mm3 (0.0-0.5); Eosinophils % (Auto) 3 % (0-10); Hematocrit 48.3 % (36.0-46.0); Hemoglobin 15.5 g/dL (12.0-16.0); Immature Granulocytes % (Auto) 0 % (0-0); Immature Granulocytes Auto 0.06 Thou/mm3 (0.00-0.00); Lymphocytes # (Auto) 1.8 Thou/mm3 (1.0-4.8); Lymphocytes % (Auto) 12 % (10-50); Mean Corpuscular HGB Conc 32.1 g/dl (31.0-37.0); Mean Corpuscular Hemoglobin 29.2 pg (25.0-35.0); Mean Corpuscular Volume 91 fL (80-100); Monocytes % (Auto) 7 % (0-12); Neutrophils # (Auto) 10.9 Thou/mm3 (1.8-7.7); Neutrophils % (Auto) 76 % (37-80); Nucleated Red Blood Cell % 0 /100 WBC (0); Platelet Count 241 Thou/mm3 (140-440); RDW Standard Deviation 51.8 fL (36.4-46.3); White Blood Count 14.3 Thou/mm3 (3.6-11.0)
[2024-07-27 06:28] LABS: Alanine Aminotransferase 22 U/L (10-49); Albumin, Serum 4.6 gm/dL (3.4-4.8); Albumin/Globulin Ratio 1.6 (1.2-2.2); Alkaline Phosphatase 86 U/L (46-116); Anion Gap 9 (7-16); Aspartate Amino Transferase 23 U/L (0-34); BUN/Creatinine Ratio 26 Ratio (12-20); Bilirubin,Total 0.6 mg/dL (0.3-1.2); Blood Urea Nitrogen 26 mg/dL (9-23); Calcium 9.9 mg/dL (8.3-10.6); Calcium (Corrected) 9.9 mg/dL (8.5-10.1); Carbon Dioxide 29.9 mMol/L (20.0-31.0); Chloride 100 mMol/L (98-107); Globulin 2.8 gm/dL (2.3-3.5); Glucose 112 mg/dL (74-106); Osmolality,Calculated 283 (275-295); Sodium 139 mMol/L (136-145); Total Protein 7.4 gm/dL (5.7-8.2); eGFR 55 See Note
[2024-07-27] MEDS: Lisinopril 2.5 MG TABLET 10 MG PO (08:25)
[2024-07-27] MEDS: ATORVASTATIN CALCIUM 10 MG TABLET 40 MG PO (08:25)
[2024-07-27] MEDS: DOXYCYCLINE 100 MG TABLET PO ×2 (08:26→20:13)
[2024-07-27] MEDS: Furosemide 40 MG TABLET PO (08:26)
[2024-07-27] MEDS: PANTOPRAZOLE 40 MG TABLET PO (08:26)
[2024-07-27] MEDS: ASPIRIN EC 81 MG TABEC PO (08:26)
[2024-07-27] MEDS: METOPROLOL SUCCINATE XL 25 MG TABCR PO (08:26)
[2024-07-27] MEDS: ENOXAPARIN SOD INJ 40 MG/0.4 ML SYRINGE SC (08:27)
--- NOTE | 2024-07-27 12:07 | ESPR_ITS ---
<Statement entered by Lise Holley MD - 08/11/24 09:37> I reviewed above note and agree with findings and plans. I have also personally examined the patient with medicine team and went over assessment and plan with medical team including internal recruiter and resident physician. Documentation for date of: 07/27/24 Subjective Subjective Interval history: Patient seen today at the bedside found awake, alert, oriented x3. No overnight events reported. No active complaints at this time, states resolution of symptoms from admission. Vital signs stable at this time. At this time will keep patient for 2 more day due to some insurance issue. Will continue to monitor at this time. Exam Vital Signs Temp Pulse Resp BP Pulse Ox O2 Del Method O2 Flow Rate 96.9 F 60 18 148/73 H 92 L Room Air 1 07/27/24 08:00 07/27/24 08:26 07/27/24 08:00 07/27/24 08:26 07/27/24 08:00 07/27/24 08:00 07/26/24 15:32 Narrative Exam Physical exam General: AAOx3, NAD HEENT: Moist mucous membranes, conjunctiva clear, EOMI, PERRLA, Cardiovascular: S1, S2, radial pulses +2 bilat, RRR Pulmonary: CTAB bilat no cough, no wheezing GI: No tenderness to light or deep palpitation, no guarding, rigidity, rebound tenderness or distension Extremities: No presence of trace or pitting edema in lower extremities bilaterally, dorsalis pedis pulses +2 bilaterally Neuro: AAOx3, no focal motor or sensory deficits in the UE or LE bilat Objective Labs 07/27/24 05:39 07/27/24 05:39 Labs: Laboratory Results - last 24 hr 07/27/24 05:39 WBC 14.3 H RBC 5.30 H Hgb 15.5 Hct 48.3 H MCV 91 MCH 29.2 MCHC 32.1 RDW Std Deviation 51.8 H Plt Count 241 Neut % (Auto) 76 Lymph % (Auto) 12 [place] % (Auto) 7 Eos % (Auto) 3 Baso % (Auto) 1 Neut # (Auto) 10.9 H Lymph # (Auto) 1.8 Logan # (Auto) 1.0 H Eos # (Auto) 0.5 Baso # (Auto) 0.1 Immature Gran # (Auto) 0.06 H Absolute Nucleated RBC 0.00 Immature Gran % 0 Nucleated RBC % 0 Sodium 139 Potassium 4.0 Chloride 100 Carbon Dioxide 29.9 Anion Gap 9 BUN 26 H Creatinine 1.0 Estim Creat Clear Calc 51.0 L eGFR 55 L BUN/Creatinine Ratio 26 H Glucose 112 H Calculated Osmolality 283 Calcium 9.9 Corrected Calcium 9.9 Total Bilirubin 0.6 AST 23 ALT 22 Alkaline Phosphatase 86 Total Protein 7.4 Albumin 4.6 Globulin 2.8 Albumin/Globulin Ratio 1.6 Quality Measures Quality Measures none Advance care planning discussed with:: patient Assessment & Plan Assessment Current Active Medications: Generic Name Dose Route Start Last Admin Trade Name Freq PRN Reason Stop Dose Admin Aspirin 81 mg 07/25/24 09:00 07/27/24 08:26 Aspirin Ec 81 Mg Tabec PO 08/24/24 08:59 81 mg DAILY PEBBLES Administration Atorvastatin Calcium 40 mg 07/27/24 09:00 Atorvastatin Calcium 20 Mg Tablet PO 08/24/24 08:59 DAILY PEBBLES Doxycycline Hyclate 100 mg 07/26/24 21:00 07/27/24 08:26 Doxycycline 100 Mg Tablet PO 08/02/24 20:59 100 mg BID PEBBLES Administration Enoxaparin Sodium 40 mg 07/24/24 12:45 07/27/24 08:27 Enoxaparin Sod Inj 40 Mg/0.4 Ml Syringe SC 08/07/24 12:44 40 mg DAILY PEBBLES Administration Furosemide 40 mg 07/25/24 15:00 07/27/24 08:26 Furosemide 40 Mg Tablet PO 08/24/24 14:59 40 mg QDAY PEBBLES Administration Hydralazine HCl 10 mg 07/26/24 16:04 Hydralazine Inj 20 Mg/Ml Vial IV 08/25/24 16:03 Q6HR PRN SBP >170 Ceftriaxone Sodium/Dextrose 50 mls @ 100 mls/hr 07/25/24 09:00 07/26/24 08:41 Rocephin/D5w 1gm Iv Premix IV 08/01/24 08:59 Infused QDAY PEBBLES Infusion Levothyroxine Sodium 125 mcg 07/25/24 06:00 07/27/24 05:31 Levothyroxine Sodium 125 Mcg Tablet PO 08/24/24 05:59 125 mcg ACBR PEBBLES Administration Lisinopril 10 mg 07/26/24 13:15 07/27/24 08:25 Lisinopril 2.5 Mg Tablet PO 08/25/24 13:14 10 mg QDAY PEBBLES Administration Metoprolol Succinate 25 mg 07/24/24 12:45 07/27/24 08:26 Metoprolol Succinate Xl 25 Mg Tabcr PO 08/23/24 12:44 25 mg DAILY PEBBLES Administration Pantoprazole Sodium 40 mg 07/25/24 09:00 07/27/24 08:26 Pantoprazole 40 Mg Tablet PO 08/24/24 08:59 40 mg DAILY PEBBLES Administration Plan 84-year-old female with hypertension, hyperlipidemia and hypothyroidism subsequent CAD status post stent placement and heart failure with preserved ejection fraction who presented to the ER with chief complaint of right leg pain and shortness of breath. Admitted as an outpatient for community-acquired pneumonia and right leg cellulitis. #Community-acquired pneumonia Chest x-ray showed left basilar pneumonia CTA of the chest showed mild bilateral pleural effusions and bibasilar pneumonia On physical exam there is decreased breath sounds bilaterally, resolved patient currently on room air at this time -On Ceftriaxone -On doxycycline #Right lower extremity cellulitis Patient came with lower extremity swelling and erythema Venous ultrasound of the lower extremity was negative for DVT CTA was negative for pulmonary embolism -On antibiotics as above #Heart failure with preserved ejection fraction CTA shows bilateral pleural effusions On physical exam patient has bilateral lower extremity edema -Started Lasix 40 mg p.o. daily #Hyperlipidemia #Coronary artery disease status post stents #Hypertension -On atorvastatin 40 mg -On aspirin 81 mg -Metoprolol succinate 25 mg daily #Hypothyroidism Patient has a history of Graves' disease status post ablation and currently transition to hypothyroidism -Continue levothyroxine Case discussed with my senior Dr. Roblero PGY-[address] Leydi Munoz MD PGY-1 Disposition: Medsurg Fluids: None Feeding: Cardiac diet Thrombo prophylaxis: lovenox Gastric Ulcer prophylaxis: Pantoprazole CODE STATUS: Full code Senior resident attestation: Patient evaluated and examined at the bedside, plan of care discussed with rest of the team including my attending physician, except as noted. Patient was admitted for cellulitis and pneumonia, currently on IV ceftriaxone and p.o. doxycycline, pending discharge to SNF, requiring 3 midnight stay per policy Annika PGY2
--- NOTE | 2024-07-27 12:35 | PC.SS ---
Follow up note: Pt is on IV antibiotic. [facility] pt after she meets 3 midnights in pt hospital stay, per Izzy leary L.G.
[2024-07-27] MEDS: ATORVASTATIN CALCIUM 20 MG TABLET 40 MG PO (14:44)
[2024-07-27] MEDS: cefTRIAXone/D5w 1gm IV premix 50 ML IV (14:45)
[2024-07-28] VITALS (9 sets, daily range): BP systolic 104–155; BP diastolic 59–87; PULSE 61–84; RESP 18; TEMP 36–36.7; O2SAT 93–95
[2024-07-28] MEDS: LEVOTHYROXINE SODIUM 125 MCG TABLET PO (05:12)
[2024-07-28 06:27] LABS: Basophils # (Auto) 0.1 Thou/mm3 (0.0-0.2); Basophils % (Auto) 1 % (0-2.5); Eosinophils # (Auto) 0.5 Thou/mm3 (0.0-0.5); Eosinophils % (Auto) 5 % (0-10); Hematocrit 43.4 % (36.0-46.0); Hemoglobin 14.3 g/dL (12.0-16.0); Immature Granulocytes % (Auto) 0 % (0-0); Immature Granulocytes Auto 0.03 Thou/mm3 (0.00-0.00); Lymphocytes # (Auto) 1.3 Thou/mm3 (1.0-4.8); Lymphocytes % (Auto) 13 % (10-50); Mean Corpuscular HGB Conc 32.9 g/dl (31.0-37.0); Mean Corpuscular Hemoglobin 29.5 pg (25.0-35.0); Mean Corpuscular Volume 90 fL (80-100); Monocytes # (Auto) 0.7 Thou/mm3 (0.0-0.8); Monocytes % (Auto) 7 % (0-12); Neutrophils # (Auto) 7.9 Thou/mm3 (1.8-7.7); Neutrophils % (Auto) 75 % (37-80); Nucleated Red Blood Cell % 0 /100 WBC (0); Platelet Count 224 Thou/mm3 (140-440); RDW Standard Deviation 50.4 fL (36.4-46.3); Red Blood Count 4.85 Miln/mm3 (4.00-5.20); White Blood Count 10.5 Thou/mm3 (3.6-11.0)
[2024-07-28 07:13] LABS: Alanine Aminotransferase 18 U/L (10-49); Albumin, Serum 4.1 gm/dL (3.4-4.8); Albumin/Globulin Ratio 1.7 (1.2-2.2); Alkaline Phosphatase 72 U/L (46-116); Anion Gap 9 (7-16); Aspartate Amino Transferase 17 U/L (0-34); BUN/Creatinine Ratio 27 Ratio (12-20); Bilirubin,Total 0.5 mg/dL (0.3-1.2); Blood Urea Nitrogen 27 mg/dL (9-23); Calcium 9.3 mg/dL (8.3-10.6); Calcium (Corrected) 9.3 mg/dL (8.5-10.1); Carbon Dioxide 28.4 mMol/L (20.0-31.0); Chloride 102 mMol/L (98-107); Globulin 2.4 gm/dL (2.3-3.5); Glucose 109 mg/dL (74-106); Magnesium 1.8 mg/dL (1.6-2.6); Osmolality,Calculated 283 (275-295); Phosphorous 3.6 mg/dL (2.4-5.1); Potassium 3.9 mMol/L (3.4-5.1); Sodium 139 mMol/L (136-145); Total Protein 6.5 gm/dL (5.7-8.2); eGFR 55 See Note
[2024-07-28] MEDS: Lisinopril 2.5 MG TABLET 10 MG PO (08:53)
[2024-07-28] MEDS: DOXYCYCLINE 100 MG TABLET PO ×2 (08:53→20:08)
[2024-07-28] MEDS: METOPROLOL SUCCINATE XL 25 MG TABCR PO (08:53)
[2024-07-28] MEDS: ATORVASTATIN CALCIUM 20 MG TABLET 40 MG PO (08:53)
[2024-07-28] MEDS: PANTOPRAZOLE 40 MG TABLET PO (08:53)
[2024-07-28] MEDS: ASPIRIN EC 81 MG TABEC PO (08:53)
[2024-07-28] MEDS: cefTRIAXone/D5w 1gm IV premix 50 ML IV (08:54)
[2024-07-28] MEDS: Furosemide 40 MG TABLET PO (08:54)
[2024-07-28] MEDS: ENOXAPARIN SOD INJ 40 MG/0.4 ML SYRINGE SC (08:54)
--- NOTE | 2024-07-28 12:40 | ESPR_ITS ---
<Statement entered by Lise Holley MD - 08/11/24 09:35> I reviewed above note and agree with findings and plans. I have also personally examined the patient with medicine team and went over assessment and plan with medical team including internal investigator and resident physician. <Statement entered by Pilar Flood MD - 07/28/24 16:08> Patient was seen and examined at bedside. Patient cellulitis has improved significantly. Her cough also has been improving. Patient will most likely be discharged tomorrow after SNF authorization she will be discharged on doxycycline and Keflex p.o. We resumed patient's heart failure medications. - Patient's plan and care discussed with my attending, Dr. Leydi Flood MD Internal Medicine PGY-2 Documentation for date of: 07/28/24 Subjective Subjective Interval history: Patient seen today at the bedside found awake, alert, orientedx3. No overnight events reported. No active complaints at this time. Vital signs stable at this time. Right lower extremity erythema has resolved. Patient denies any pain or new swelling. Pending some insurance thing for discharge. Anticipate discharge in the next 24-48 hours. Plan will be to discharge on Keflex and doxycycline. Exam Vital Signs Temp Pulse Resp BP Pulse Ox O2 Del Method O2 Flow Rate 97.2 F 84 18 155/76 H 95 Room Air 1 07/28/24 08:00 07/28/24 12:00 07/28/24 08:00 07/28/24 08:54 07/28/24 08:00 07/28/24 08:00 07/26/24 15:32 Narrative Exam Physical exam General: AAOx3, NAD HEENT: Moist mucous membranes, conjunctiva clear, EOMI, PERRLA, Cardiovascular: S1, S2, radial pulses +2 bilat, RRR Pulmonary: CTAB bilat no cough, no wheezing GI: No tenderness to light or deep palpitation, no guarding, rigidity, rebound tenderness or distension Extremities: No presence of trace or pitting edema in lower extremities bilaterally, dorsalis pedis pulses +2 bilaterally Neuro: AAOx3, no focal motor or sensory deficits in the UE or LE bilat Objective Labs 07/28/24 05:00 07/28/24 05:00 Labs: Laboratory Results - last 24 hr 07/28/24 05:00 WBC 10.5 RBC 4.85 Hgb 14.3 Hct 43.4 MCV 90 MCH 29.5 MCHC 32.9 RDW Std Deviation 50.4 H Plt Count 224 Neut % (Auto) 75 Lymph % (Auto) 13 [place] % (Auto) 7 Eos % (Auto) 5 Baso % (Auto) 1 Neut # (Auto) 7.9 H Lymph # (Auto) 1.3 [place] # (Auto) 0.7 Eos # (Auto) 0.5 Baso # (Auto) 0.1 Immature Gran # (Auto) 0.03 H Absolute Nucleated RBC 0.00 Immature Gran % 0 Nucleated RBC % 0 Sodium 139 Potassium 3.9 Chloride 102 Carbon Dioxide 28.4 Anion Gap 9 BUN 27 H Creatinine 1.0 Estim Creat Clear Calc 51.0 L eGFR 55 L BUN/Creatinine Ratio 27 H Glucose 109 H Calculated Osmolality 283 Calcium 9.3 Corrected Calcium 9.3 Phosphorus 3.6 Magnesium 1.8 Total Bilirubin 0.5 AST 17 ALT 18 Alkaline Phosphatase 72 Total Protein 6.5 Albumin 4.1 D Globulin 2.4 Albumin/Globulin Ratio 1.7 Quality Measures Quality Measures none Advance care planning discussed with:: patient Assessment & Plan Assessment Current Active Medications: Generic Name Dose Route Start Last Admin Trade Name Freq PRN Reason Stop Dose Admin Aspirin 81 mg 07/25/24 09:00 07/28/24 08:53 Aspirin Ec 81 Mg Tabec PO 08/24/24 08:59 81 mg DAILY PEBBLES Administration Atorvastatin Calcium 40 mg 07/27/24 09:00 07/28/24 08:53 Atorvastatin Calcium 20 Mg Tablet PO 08/24/24 08:59 40 mg DAILY PEBBLES Administration Doxycycline Hyclate 100 mg 07/26/24 21:00 07/28/24 08:53 Doxycycline 100 Mg Tablet PO 08/02/24 20:59 100 mg BID PEBBLES Administration Enoxaparin Sodium 40 mg 07/24/24 12:45 07/28/24 08:54 Enoxaparin Sod Inj 40 Mg/0.4 Ml Syringe SC 08/07/24 12:44 40 mg DAILY PEBBLES Administration Furosemide 40 mg 07/25/24 15:00 07/28/24 08:54 Furosemide 40 Mg Tablet PO 08/24/24 14:59 40 mg QDAY PEBBLES Administration Hydralazine HCl 10 mg 07/26/24 16:04 Hydralazine Inj 20 Mg/Ml Vial IV 08/25/24 16:03 Q6HR PRN SBP >170 Ceftriaxone Sodium/Dextrose 50 mls @ 100 mls/hr 07/25/24 09:00 07/28/24 08:54 Rocephin/D5w 1gm Iv Premix IV 08/01/24 08:59 100 mls/hr QDAY PEBBLES Administration Levothyroxine Sodium 125 mcg 07/25/24 06:00 07/28/24 05:12 Levothyroxine Sodium 125 Mcg Tablet PO 08/24/24 05:59 125 mcg ACBR PEBBLES Administration Lisinopril 10 mg 07/26/24 13:15 07/28/24 08:53 Lisinopril 2.5 Mg Tablet PO 08/25/24 13:14 10 mg QDAY PEBBLES Administration Metoprolol Succinate 25 mg 07/24/24 12:45 07/28/24 08:53 Metoprolol Succinate Xl 25 Mg Tabcr PO 08/23/24 12:44 25 mg DAILY PEBBLES Administration Pantoprazole Sodium 40 mg 07/25/24 09:00 07/28/24 08:53 Pantoprazole 40 Mg Tablet PO 08/24/24 08:59 40 mg DAILY PEBBLES Administration Plan 84-year-old female with hypertension, hyperlipidemia and hypothyroidism subsequent CAD status post stent placement and heart failure with preserved ejection fraction who presented to the ER with chief complaint of right leg pain and shortness of breath. Admitted as an outpatient for community-acquired pneumonia and right leg cellulitis. #Community-acquired pneumonia Chest x-ray showed left basilar pneumonia CTA of the chest showed mild bilateral pleural effusions and bibasilar pneumonia On physical exam there is decreased breath sounds bilaterally, resolved patient currently on room air at this time Plan on discharge with keflex -On Ceftriaxone -On doxycycline #Right lower extremity cellulitis Patient came with lower extremity swelling and erythema Venous ultrasound of the lower extremity was negative for DVT CTA was negative for pulmonary embolism -On antibiotics as above #Heart failure with preserved ejection fraction CTA shows bilateral pleural effusions On physical exam patient has bilateral lower extremity edema -Started Lasix 40 mg p.o. daily #Hyperlipidemia #Coronary artery disease status post stents #Hypertension -On atorvastatin 40 mg -On aspirin 81 mg -Metoprolol succinate 25 mg daily #Hypothyroidism Patient has a history of Graves' disease status post ablation and currently transition to hypothyroidism -Continue levothyroxine Case discussed with my senior Dr. Quezada PGY-[address] Leydi Munoz MD PGY-1 Disposition: Medsurg Fluids: None Feeding: Cardiac diet Thrombo prophylaxis: lovenox Gastric Ulcer prophylaxis: Pantoprazole CODE STATUS: Full code
[2024-07-29] VITALS: BP 112/59; PULSE 63; PULSE 65; RESP 19; TEMP 36.3; O2SAT 95
[2024-07-29 04:00] VITALS: BP 125/69; PULSE 73; PULSE 79; RESP 18; TEMP 36.4; O2SAT 95
[2024-07-29] MEDS: LEVOTHYROXINE SODIUM 125 MCG TABLET PO (05:24)
[2024-07-29 08:00] VITALS: BP 114/65; PULSE 62; PULSE 69; RESP 18; TEMP 36.2; O2SAT 96
[2024-07-29] MEDS: ENOXAPARIN SOD INJ 40 MG/0.4 ML SYRINGE SC (08:32)
[2024-07-29] MEDS: ASPIRIN EC 81 MG TABEC PO (08:32)
[2024-07-29] MEDS: ATORVASTATIN CALCIUM 20 MG TABLET 40 MG PO (08:32)
[2024-07-29] MEDS: DOXYCYCLINE 100 MG TABLET PO (08:32)
[2024-07-29] MEDS: cefTRIAXone/D5w 1gm IV premix 50 ML IV (08:33)
[2024-07-29] MEDS: PANTOPRAZOLE 40 MG TABLET PO (08:33)
[2024-07-29 08:40] VITALS: BP 114/65; PULSE 62
[2024-07-29] MEDS: Lisinopril 2.5 MG TABLET 10 MG PO (08:40)
[2024-07-29 08:41] VITALS: BP 114/65; PULSE 62
[2024-07-29] MEDS: METOPROLOL SUCCINATE XL 25 MG TABCR PO (08:41)
[2024-07-29] MEDS: Furosemide 40 MG TABLET PO (08:41)
--- NOTE | 2024-07-29 08:56 | PC.SS ---
Addendum entered by SHAWN Berry 07/29/24 11:45: Anticipate d/c eta at 2pm. Notified nurse and [facility] staff. Addendum entered by SHAWN Berry 07/29/24 10:21: Contacted patient's son, Eleazar Anguiano to notify his mother would be d/c to [facility] today. Addendum entered by SHAWN Berry 07/29/24 10:20: Met with the patient and she is agreeable with discharging to SNF today. Transportation arranged with [facility], reference number [id number]. Pending ETA. Original Note: SS update: patient identified as possible discharge today. Contacted Maisha at [facility] she confirms they can accept the patient today.
--- NOTE | 2024-07-29 10:48 | PD.RESDS ---
Planned Discharge Date 07/29/24 DS: Providers Provider Date of admission: 07/26/24 08:36 Primary care physician: Physician No Primary/Family Admitting Provider: Lise Holley MD Attending Provider on Admission: Lise Holley MD Consults: 07/24/24 18:04 Referral Physical Therapy Routine Comment: Physician Instructions: Attending Provider on DC: Og Munoz MD Discharging Provider: Og Munoz MD DS: Diagnosis Problem List Completed Was Problem List Reviewed/Reconciled?: Yes Hospital Course Hospital Course Hospital course: 84-year-old female with hypertension, hyperlipidemia and hypothyroidism subsequent CAD status post stent placement and heart failure with preserved ejection fraction who presented to the ER with chief complaint of right leg pain and shortness of breath. Admitted for community-acquired pneumonia and right leg cellulitis. During hospital stay patients community acquired pneumonia and right lower extremity cellulits was managed with IV antibiotics namely Ceftriaxone and oral antibiotic doxycyline and later at time of discharge was transitioned to oral Keflex and doxycycline. Patient has history of Heart failure with preserved ejection fraction which was managed with oral diuretics lasix as taken at home. Patient has history of coronary artery disease, hyperlipidemia, hypertension for which patients atorvastatin, metoprolol and aspirin were given as taken at home. Hypothyroidism was managed with patients levothyroxine as taken at home. Patient at this time is medically stable for discharge. Patient instructed to continue 2 more days of antibiotics, take medications as prescribed. We have switched your metoprolol tartarate to metoprolol succinate, it is to be taken once daily, Follow up with Primary care physician with labs within 5 days of discharge and reconcile medications. If symptoms persist or worsen, return to the Emergency Department. Problem List: #Community-acquired pneumonia #Right lower extremity cellulitis #Heart failure with preserved ejection fraction #Hyperlipidemia #Coronary artery disease status post stents #Hypertension #Hypothyroidism Case discussed with my senior Dr. Roblero PGY-[address] Daxa Munoz MD PGY-1 Senior resident attestation: Patient evaluated and examined at the bedside, plan of care discussed with rest of the team including my attending physician, except as noted. Patient at this time is medically stable for discharge. Patient instructed to continue 2 more days of antibiotics, take medications as prescribed. We have switched your metoprolol tartarate to metoprolol succinate, it is to be taken once daily, Follow up with Primary care physician with labs within 5 days of discharge and reconcile medications. If symptoms persist or worsen, return to the Emergency Department. Annika PGY2 Status at Discharge Functional status at discharge: independent ambulation Time Spent with Patient Time attestation: Total time spent providing and/or coordinating discharge services: Time spent: Greater than 30 minutes Exam Vital Signs Temp Pulse Resp BP Pulse Ox O2 Del Method O2 Flow Rate 97.2 F 62 18 114/65 96 Room Air 1 07/29/24 08:00 07/29/24 08:41 07/29/24 08:00 07/29/24 08:41 07/29/24 08:00 07/29/24 08:00 07/26/24 15:32 Narrative Exam Physical exam General: AAOx3, NAD HEENT: Moist mucous membranes, conjunctiva clear, EOMI, PERRLA, Cardiovascular: S1, S2, radial pulses +2 bilat, RRR Pulmonary: CTAB bilat no cough, no wheezing GI: No tenderness to light or deep palpitation, no guarding, rigidity, rebound tenderness or distension Extremities: No presence of trace or pitting edema in lower extremities bilaterally, dorsalis pedis pulses +2 bilaterally Neuro: AAOx3, no focal motor or sensory deficits in the UE or LE bilat Discharge Plan Plan Patient Disposition: Xfer Skilled Nsg Fac (SNF) Care Plan Goals: Continue 2 more days of antibiotics , take medications as prescribed. We have switched your metoprolol tartarate to metoprolol succinate, it is to be taken once daily, Follow up with Primary care physician with labs within 5 days of discharge and reconcile medications. If symptoms persist or worsen, return to the Emergency Department. Prescriptions/Referrals Prescriptions/Med Rec: New metoprolol succinate 25 mg Tablet Extended Release 24 Hr 25 mg PO DAILY 30 Days Qty: 30 0RF cephalexin 500 mg capsule 500 mg PO QID 2 Days Qty: 8 0RF doxycycline hyclate 100 mg capsule 100 mg PO BID 2 Days Qty: 4 0RF Continued levothyroxine [Synthroid] 125 mcg Tablet 125 mcg PO QDAY lisinopril 5 mg tablet 5 mg PO QDAY Qty: 30 0RF furosemide 20 mg Tablet 20 mg PO QAM Qty: 30 0RF aspirin [Adult Aspirin Regimen] 81 mg tablet,delayed release (DR/EC) 81 mg PO QDAY Qty: 30 0RF atorvastatin [Lipitor] 40 mg tablet 40 mg PO QDAY Qty: 30 0RF Discontinued metoprolol succinate 25 mg tablet extended release 24 hr 25 mg PO QDAY Qty: 30 0RF Referrals: No Primary/Family,Physician [Primary Care Provider] - Patient/Caregiver Discharge Instructions Education Materials: Treating Pneumonia, Discharge Instructions for Cellulitis Print Language: German Stand Alone Forms: [employer] Award Info., Patient Portal Info Letter Discharge Order Discharge Orders: Discharge (Routine); Ordered 07/29/24 Ordered By: Dariel Roblero Quality Discharge Quality Measures VTE prophylaxis MD Attestestation MD Attestation I have examined the patient, reviewed labs and imaging findings, discussed the case with the resident(s), and reviewed entered orders. I agree with the plan of care as outlined in this note. Dr. Mittal
[2024-07-29] MEDS: cephALEXin 250 MG CAPSULE 500 MG PO (11:19)
[2024-07-29 12:00] VITALS: BP 126/104; PULSE 60; RESP 18; TEMP 36.2; O2SAT 94
== END 2024-07-29 13:28 | disposition skilled nursing facility (03) | DRG 602 ==
LOC: SERX 11:55 → S3NX 07-27 07:08 → SERHOLD 07-27 07:53 → S3NX 07-27 07:53
PROVIDERS: Student in an Organized Health Care Education/Training Program; Admitting Provider Internal Medicine; Emergency Provider Emergency Medicine; Visit Provider Student in an Organized Health Care Education/Training Program
DX: L03.115 Cellulitis of right lower limb (principal); J18.9 Pneumonia, unspecified organism; I50.32 Chronic diastolic (congestive) heart failure; I11.0 Hypertensive heart disease with heart failure; I25.10 Atherosclerotic heart disease of native coronary artery without angina pectoris; E78.5 Hyperlipidemia, unspecified; E03.9 Hypothyroidism, unspecified; Z95.5 Presence of coronary angioplasty implant and graft; Z60.2 Problems related to living alone; Z79.899 Other long term (current) drug therapy; Z79.890 Hormone replacement therapy; Z79.82 Long term (current) use of aspirin; Z88.0 Allergy status to penicillin
CPT/HCPCS: 36415; 71045; 71275; 73610; 80048; 80053; 80069; 81001; 83605; 83735; 83880; 84100; 84145; 84439; 84443; 84484; 85025; 85379; 85610; 85652; 85730; 86140; 87040; 87400; 87634; 87811; 93005; 93225; 93970; 94640; 96365; 96372; 96375; 97162; 99285; A4649; A9270; G0378; J0456; J0696; J1650; J2919; J3490; J7050; Q9967